=== PATIENT | female | born 1990 | race Caucasian/White ===

== ENCOUNTER 2021-03-02 05:22 | Inpatient (IN) | payer OTHER ==
[2021-03-02] MEDS ORDERED: Nalbuphine 10 MG/1 ML Vial IVPUSH PRN (06:47)
[2021-03-02] MEDS ORDERED: Acetaminophen/oxyCODONE 325-5 MG Tab PO PRN (06:47)
[2021-03-02] MEDS ORDERED: Naloxone 0.4 MG/ML Syringe IVPUSH PRN (06:47)
[2021-03-02] MEDS ORDERED: Ondansetron 4 MG/2 ML SDV IVPUSH PRN ×2 (06:47→09:06)
[2021-03-02] MEDS ORDERED: fentaNYL 100 MCG/2 ML SDV IVPUSH PRN (06:47)
[2021-03-02] MEDS ORDERED: diphenhydrAMINE 50 MG/ML SDV IVPUSH PRN ×2 (06:47→09:06)
--- NOTE | 2021-03-02 06:53 | PCM.PREANE ---
Preanesthetic Assessment - Anesthesia/Transfusion/Family Hx Anesthesia History: Prior Anesthesia Without Reaction Other Type of Anesthesia Reaction Comment: much trouble placing previous Epidural Family History of Anesthesia Reaction: No Transfusion History: No Prior Transfusion(s) - Physical Assessment NPO Status Date: 03/02/21 NPO Status Time: 00:00 Height: 5 ft 5 in Weight: 144 lb ASA Class: 2 Airway Class: Mallampati = 2 - Lab Values: Laboratory Last Values WBC 9.46 K/uL (4.0-11.0) 03/01/21 09:58 RBC 3.75 M/uL (4.30-5.90) L 03/01/21 09:58 Hgb 12.3 g/dL (12.0-16.0) 03/01/21 09:58 Hct 36.5 % (36.0-46.0) 03/01/21 09:58 MCV 97.3 fL (80.0-98.0) 03/01/21 09:58 MCH 32.8 pg (27.0-32.0) H 03/01/21 09:58 MCHC 33.7 g/dL (31.0-37.0) 03/01/21 09:58 RDW Std Deviation 51.7 fl (28.0-62.0) 03/01/21 09:58 RDW Coeff of Diana 15 % (11.0-15.0) 03/01/21 09:58 Plt Count 190 K/uL (150-400) 03/01/21 09:58 MPV 10.00 fL (7.40-12.00) 03/01/21 09:58 Nucleated RBC % 0.0 /100WBC 03/01/21 09:58 Nucleated RBCs # 0 K/uL 03/01/21 09:58 Blood Type O POSITIVE 03/01/21 09:58 Antibody Screen NEGATIVE 03/01/21 09:58 - Allergies Allergies/Adverse Reactions: Allergies Allergy/AdvReac Type Severity Reaction Status Date / Time No Known Allergies Allergy Verified 02/24/21 15:21 - Acknowledgements Anesthesia Type Planned: Spinal Pt an Appropriate Candidate for the Planned Anesthesia: Yes Alternatives and Risks of Anesthesia Discussed w Pt/Guardian: Yes Pt/Guardian Understands and Agrees with Anesthesia Plan: Yes PreAnesthesia Questionnaire HEENT History: Reports: None Cardiovascular History: Reports: None Respiratory History: Reports: None Gastrointestinal History: Reports: Other (See Below) Other Gastrointestinal History: heartburn during Genitourinary History: Reports: UTI, Recurrent [employer] History: Reports: Musculoskeletal History: Reports: Other (See Below) Other Musculoskeletal History: hx of Scoliosis Neurological History: Reports: Vertigo, Other (See Below) Other Neuro History: hx of motion sickness Psychiatric History: Reports: None Endocrine/Metabolic History: Reports: None Hematologic History: Reports: None Immunologic History: Reports: None Oncologic (Cancer) History: Reports: None Dermatologic History: Reports: None - Past Surgical History Head Surgeries/Procedures: Reports: None HEENT Surgical History: Reports: None Cardiovascular Surgical History: Reports: None Respiratory Surgical History: Reports: None GI Surgical History: Reports: None Female Surgical History: Reports: Section Endocrine Surgical History: Reports: None Oncologic Surgical History: Reports: None Dermatological Surgical History: Reports: None - SUBSTANCE USE Tobacco Use Status *Q: Never Tobacco User Recreational Drug Use History: No - HOME MEDS Home Medications: Home Meds Folic Acid 0.4 mg PO DAILY 02/24/21 [History] L.acidoph,Paracasei, B.lactis [Probiotic] 1 cap PO DAILY 02/24/21 [History] #103/Iron Fumarate/Fa [ ] 1 tab PO DAILY 02/24/21 [History] Vitamin B6-pyridOXINE 100 mg PO DAILY 02/24/21 [History] - CURRENT (IN HOUSE) MEDS Current Meds: Current Medications Diphenhydramine HCl (Diphenhydramine 50 Mg/Ml Sdv) 12.5 mg IVPUSH Q2H PRN PRN Reason: Itching Fentanyl (Fentanyl 100 Mcg/2 Ml Sdv) 50 mcg IVPUSH Q1H PRN PRN Reason: Pain (severe 7-10) Nalbuphine HCl (Nalbuphine 10 Mg/1 Ml Vial) 5 mg IVPUSH ASDIRECTED PRN PRN Reason: Itching Naloxone HCl (Naloxone 0.4 Mg/Ml Syringe) 0.1 mg IVPUSH ONETIME PRN PRN Reason: Respiratory Depression Stop: 03/03/21 06:48 Ondansetron HCl (Ondansetron 4 Mg/2 Ml Sdv) 4 mg IVPUSH Q6H PRN PRN Reason: Nausea Oxycodone/Acetaminophen (Acetaminophen/Oxycodone 325-5 Mg Tab) 2 tab PO Q6H PRN PRN Reason: Pain (moderate 4-6)
[2021-03-02] MEDS: Lactated Ringers 1,000 ML IV SCH ×2 (07:00→11:25)
[2021-03-02] MEDS ORDERED: fentaNYL 100 MCG/2 ML SDV ONE (07:17)
[2021-03-02] MEDS ORDERED: Morphine PF 10 MG/10 ML SDV ONE (07:18)
[2021-03-02] MEDS ORDERED: Oxytocin 10 Units/1 ML SDV ONE (07:18)
[2021-03-02] MEDS ORDERED: ceFAZolin 1 GM Vial ONE (08:05)
[2021-03-02] MEDS ORDERED: Ondansetron 4 MG/2 ML SDV ONE (08:31)
[2021-03-02] MEDS ORDERED: oxyCODONE 5 MG Tab PO PRN (09:06)
[2021-03-02] MEDS ORDERED: Acetaminophen 500 MG Tab PO PRN (09:06)
[2021-03-02] MEDS ORDERED: Tranexamic Acid 1,000 MG in Sodium Chloride 0.9% 100 ML IV PRN (09:06)
[2021-03-02] MEDS ORDERED: Misoprostol 200 MCG Tab RECTAL PRN (09:06)
[2021-03-02] MEDS ORDERED: Bisacodyl 10 MG Supp RECTAL PRN (09:06)
[2021-03-02] MEDS ORDERED: Oxytocin 10 Units/1 ML SDV IM PRN (09:06)
[2021-03-02] MEDS ORDERED: Lanolin 100% Cream 7 GM Tube TOP PRN (09:06)
[2021-03-02] MEDS ORDERED: Methylergonovine 0.2 MG/1 ML Amp IM PRN (09:06)
--- NOTE | 2021-03-02 09:11 | PCM.OPNOTE ---
- General Post-Op/Procedure Note Date of Surgery/Procedure: 03/02/21 Operative Procedure(s): Repeat Lower Transver Findings: Normal appearing male infant in cephalic presentation. Clear amniotic fluid. APGARs 8/9. Weight 10lbs 6oz. Normal appearing uterus, fallopian tubes and ovaries. Pre Op Diagnosis: 1. TIUP at 39w5d gestation. 2. Previous section x1. 3. Declines TOLAC Post-Op Diagnosis: 1. TIUP at 39w5d gestation. 2. Previous section x1. 3. Declines TOLAC Anesthesia Technique: Combo Spinal/Epidural Primary Surgeon: Radha Fernández Anesthesia Provider: Ananth Alvarenga Pathology: None Fluid Replacement, Intraop: 1,000 Output, Urine Amount: 200 EBL in mLs: 600 Complications: None known Condition: Good Free Text/Narrative:: Dictation #[id number]
[2021-03-02] MEDS ORDERED: Lactated Ringers 1,000 ML IV SCH (09:15)
[2021-03-02] MEDS ORDERED: Oxytocin/Lactated Ringers 30 UNIT/500 ML BAG IV SCH (09:15)
[2021-03-02] MEDS: Ketorolac 30 MG/ML SDV IVPUSH SCH ×3 (09:51→23:06)
--- NOTE | 2021-03-02 09:57 | PCM.POSTAN ---
POST ANESTHESIA ASSESSMENT - MENTAL STATUS Mental Status: Alert, Oriented - RESPIRATORY Respiratory Status: Respiratory Rate WNL, Airway Patent, O2 Saturation Stable - CARDIOVASCULAR CV Status: Pulse Rate WNL, Blood Pressure Stable - GASTROINTESTINAL GI Status: No Symptoms - POST OP HYDRATION Hydration Status: Adequate & Stable
--- NOTE | 2021-03-02 09:58 | PCM48HPAN ---
Post Anesthesia Note - EVALUATION WITHIN 48HRS OF ANESTHETIC Vital Signs in Normal Range: Yes Patient Participated in Evaluation: Yes Respiratory Function Stable: Yes Airway Patent: Yes Cardiovascular Function Stable: Yes Hydration Status Stable: Yes Pain Control Satisfactory: Yes Nausea and Vomiting Control Satisfactory: Yes Mental Status Recovered: Yes Vital Signs: Stable
--- NOTE | 2021-03-02 13:49 | OR ---
SURGEON: RADHA FERNÁNDEZ MD DATE OF PROCEDURE: 03/02/2021 PREOPERATIVE DIAGNOSES: 1. Term intrauterine at 39 weeks and 5 days gestation. 2. Previous section x1. 3. Declines vaginal after . POSTOPERATIVE DIAGNOSES: 1. Term intrauterine at 39 weeks and 5 days gestation. 2. Previous section x1. 3. Declines vaginal after . PROCEDURE: Repeat low transverse section. PRIMARY SURGEON: Radha Fernández MD ANESTHESIA: CSE. COMPLICATIONS: None known. ESTIMATED BLOOD LOSS: 600 mL. INTRAVENOUS FLUIDS: 1000 mL of crystalloid. URINE OUTPUT: 200 mL of clear urine at the end of the procedure. INDICATIONS: The patient is a 30-year-old 2, para 1 at 39 weeks and 5 days gestation with history of previous section x1 and declines trial of labor after section. FINDINGS: Normal-appearing male infant, cephalic presentation, clear amniotic fluid. scores 8 and 9. Weight 10 pounds 6 ounces. Normal-appearing uterus, tubes, and ovaries. PROCEDURE IN DETAIL: The patient was taken to the operating room where epidural anesthesia was found to be adequate. She was prepped and draped in the normal sterile fashion in a dorsal supine position with leftward tilt. Skin incision was made with scalpel and carried to the underlying layer of fascia, which was incised in the midline. Fascial incision was then extended laterally with Loredo scissors bilaterally. The superior aspect of the fascial incision was then grasped with Kit clamps, elevated, and dissected off the rectus muscles with Mayos. The inferior aspect of the fascial incision was then grasped with Kochers and in a likewise manner was elevated and dissected off with Mayos. The peritoneum was then entered digitally and extended with good visualization of the bladder. A large Ned O- Ring was then inserted into the abdominal cavity at this time to increase visualization. Vesicouterine peritoneum was then identified, grasped with pickups, and entered sharp with Metzenbaum scissors. The bladder flap was then created digitally. Uterine incision was then created in transverse fashion in the lower uterine segment with a scalpel and extended digitally. Amniotic sac was incidentally AROM'd at this time with clear fluid noted. 's head delivered atraumatically. Nose and mouth suctioned with bulb. Cord clamped and cut and handed off to awaiting nursing staff. Arterial, venous, and cord blood gases were then obtained from the umbilical cord. Placenta was then expressed, and the uterus was exteriorized from the abdomen and cleared of all clots and debris. The uterine incision was then repaired in a running locked fashion with 0 Monocryl. Excellent hemostasis was noted. The uterus was then returned to the abdomen. Gutters cleared of all clots and debris. The Ned O-Ring was then removed, and the peritoneum was then closed in a running fashion with 0 Vicryl, and the rectus muscles were next reapproximated with 0 Vicryl. The fascia was then closed with 0 Vicryl in a running fashion. Incision was irrigated. Hemostasis assured. Subcutaneous tissue was reapproximated with 0 Vicryl, and the skin was closed with 4-0 Vicryl on a Jamar needle with Steri- Strips applied along with dressing. Sponge, lap, and needle counts were correct x2. Prophylactic antibiotics were given prior to the procedure. The patient was taken to room for recovery in stable condition. GAIL DUBOIS /[id number]
[2021-03-02] MEDS: Vitamin B6-pyridOXINE 50 MG Tab PO SCH (16:26)
[2021-03-02] MEDS: Acidophilus with Citrus Pectin Tab PO SCH (16:26)
[2021-03-02] MEDS: Folic Acid 1 MG Tab PO SCH (16:26)
[2021-03-02] MEDS: Prenatal Multivitamin with Calcium/Folic Acid/Iron Tab PO SCH (16:26)
[2021-03-02] MEDS: Docusate Sodium 100 MG Cap PO SCH (21:15)
[2021-03-03] MEDS: Ketorolac 30 MG/ML SDV IVPUSH SCH ×2 (05:43→11:41)
--- NOTE | 2021-03-03 08:33 | PCM.PNPP ---
- General Info Date of Service: 03/03/21 Subjective Update: Resting comfortably in bed during rounds. Ludwig catheter removed this morning. Patient has ambulated, however, has not voided independently. Pain controlled with PO medication. Tolerating regular diet. Lochia decreasing. and supplementing . - General Info Date of Service: 03/03/21 - Patient Data Vital Signs - Most Recent: Last Vital Signs Temp 98.5 F 03/03/21 08:00 Pulse 92 03/03/21 08:00 Resp 18 03/03/21 08:00 BP 92/55 L 03/03/21 08:00 Pulse Ox 95 03/03/21 08:00 Weight - Most Recent: 144 lb I&O - Last 24 Hours: Intake & Output 03/02/21 03/03/21 03/03/21 22:59 06:59 14:59 Intake Total 2757 700 Output Total 1250 205 Balance 1507 -133$ Lab Results - Last 24 Hours: Laboratory Results - last 24 hr 03/02/21 03/03/21 Range/Units 08:15 05:26 Hgb 9.8 L (12.0-16.0) g/dL Hct 28.7 L (36.0-46.0) % Cord ABG pH 7.384 H (7.18-7.38) Cord ABG Base Excess -1.2 H (-10--2) Cord VBG pH 7.305 (7.25-7.45) Cord VBG Base Excess -0.7 H (-10--2) Med Orders - Current: Current Medications Acetaminophen (Acetaminophen 500 Mg Tab) 1,000 mg PO Q4H PRN PRN Reason: Pain (mild 1-3) Acidophilus/Pectin (Acidophilus With Stow Pectin Tab) 1 tab PO DAILY [facility] Last Admin: 03/02/21 16:26 Dose: Not Given Documented by: Bisacodyl (Bisacodyl 10 Mg Supp) 10 mg RECTAL ONETIME PRN PRN Reason: Constipation Diphenhydramine HCl (Diphenhydramine 50 Mg/Ml Sdv) 12.5 mg IVPUSH Q2H PRN PRN Reason: Itching Diphenhydramine HCl (Diphenhydramine 50 Mg/Ml Sdv) 25 mg IVPUSH Q6H PRN PRN Reason: Itching or Nausea Last Admin: 03/02/21 10:26 Dose: 25 mg Documented by: Docusate Sodium (Docusate Sodium 100 Mg Cap) 100 mg PO BID [facility] Last Admin: 03/02/21 21:15 Dose: 100 mg Documented by: Emollient Ointment (Lanolin 100% Cream 7 Gm Tube) 0 gm TOP ASDIRECTED PRN PRN Reason: Sore Nipples Fentanyl (Fentanyl 100 Mcg/2 Ml Sdv) 50 mcg IVPUSH Q1H PRN PRN Reason: Pain (severe 7-10) Folic Acid (Folic Acid 1 Mg Tab) 0.5 mg PO DAILY [facility] Last Admin: 03/02/21 16:26 Dose: Not Given Documented by: Lactated Ringer's (Ringers, Lactated) 1,000 mls @ 150 mls/hr IV ASDIRECTED [facility] Last Admin: 03/02/21 11:25 Dose: 150 mls/hr Documented by: Lactated Ringer's (Ringers, Lactated) 1,000 mls @ 125 mls/hr IV ASDIRECTED [facility] Oxytocin/Lactated Ringer's (Pitocin In Lr 30 Units/500 Ml) 30 unit in 500 mls @ 250 mls/hr IV TITRATE [facility]; Protocol Tranexamic Acid 1,000 mg/ (Sodium Chloride) 110 mls @ 660 mls/hr IV ONETIME PRN PRN Reason: Bleeding Ibuprofen (Ibuprofen 800 Mg Tab) 800 mg PO Q8H PRN PRN Reason: mild pain or fever Ketorolac Tromethamine (Ketorolac 30 Mg/Ml Sdv) 30 mg IVPUSH Q6H [facility] Stop: 03/03/21 09:16 Last Admin: 03/03/21 05:43 Dose: 30 mg Documented by: Methylergonovine Maleate (Methylergonovine 0.2 Mg/1 Ml Amp) 0.2 mg IM ONETIME PRN PRN Reason: Excessive Vaginal Bleeding Misoprostol (Misoprostol 200 Mcg Tab) 1,000 mcg RECTAL ONETIME PRN PRN Reason: excessive bleeding Nalbuphine HCl (Nalbuphine 10 Mg/1 Ml Vial) 5 mg IVPUSH ASDIRECTED PRN PRN Reason: Itching Ondansetron HCl (Ondansetron 4 Mg/2 Ml Sdv) 4 mg IVPUSH Q6H PRN PRN Reason: Nausea Ondansetron HCl (Ondansetron 4 Mg/2 Ml Sdv) 4 mg IVPUSH Q4H PRN PRN Reason: Nausea/Vomiting Last Admin: 03/02/21 17:31 Dose: 4 mg Documented by: Oxycodone HCl (Oxycodone 5 Mg Tab) 5 mg PO Q3H PRN PRN Reason: Pain (severe 7-10) Oxycodone/Acetaminophen (Acetaminophen/Oxycodone 325-5 Mg Tab) 2 tab PO Q6H PRN PRN Reason: Pain (moderate 4-6) Oxytocin (Oxytocin 10 Units/1 Ml Sdv) 10 unit IM ASDIRECTED PRN PRN Reason: Excessive Vaginal Bleeding Prenat Multivit/[place]/Iron/Folic Ac ( Multivitamin With Calcium/Folic Acid/Iron Tab) 1 each PO DAILY [facility] Last Admin: 03/02/21 16:26 Dose: Not Given Documented by: Pyridoxine HCl (Vitamin B6-Pyridoxine 50 Mg Tab) 100 mg PO DAILY [facility] Last Admin: 03/02/21 16:26 Dose: Not Given Documented by: Discontinued Medications Cefazolin Sodium (Cefazolin 1 Gm Vial) Confirm Administered Dose 2 gm .ROUTE .STK-MED ONE Stop: 03/02/21 08:06 Fentanyl (Fentanyl 100 Mcg/2 Ml Sdv) Confirm Administered Dose 100 mcg .ROUTE .STK-MED ONE Stop: 03/02/21 07:18 Morphine Sulfate (Morphine Pf 10 Mg/10 Ml Sdv) Confirm Administered Dose 10 mg .ROUTE .STK-MED ONE Stop: 03/02/21 07:19 Naloxone HCl (Naloxone 0.4 Mg/Ml Syringe) 0.1 mg IVPUSH ONETIME PRN PRN Reason: Respiratory Depression Stop: 03/03/21 06:48 Ondansetron HCl (Ondansetron 4 Mg/2 Ml Sdv) Confirm Administered Dose 4 mg .ROUTE .STK-MED ONE Stop: 03/02/21 08:32 Oxytocin (Oxytocin 10 Units/1 Ml Sdv) Confirm Administered Dose 30 unit .ROUTE .STK-MED ONE Stop: 03/02/21 07:19 - Interaction Infant Disposition, : [place] at Bedside Feeding: Attempted ; Nursed Fair/Poor Support Person: - Recovery Exam Fundal Tone: Firm Fundal Level: At Umbilicus Fundal Placement: Midline Lochia Amount: Small Lochia Color: Rubra/Red Urinary Elimination: Indwelling Catheter - Exam General: Alert Lungs: Normal Respiratory Effort Cardiovascular: Regular Rate GI/Abdominal Exam: Soft, No Distention Extremities: Normal Range of Motion, Non-Tender, No Pedal Edema Skin: Warm, Dry, Intact Wound/Incisions: Dressing Dry and Intact Neurological: No New Focal Deficit Psy/Mental Status: Normal Mood - Problem List Review Problem List Initiated/Reviewed/Updated: Yes - My Orders Last 24 Hours: My Active Orders 03/02/21 09:06 Patient Status [ADT] Routine Ambulate [RC] PER UNIT ROUTINE Antiembolic Devices [RC] PER UNIT ROUTINE Communication Order [RC] PER UNIT ROUTINE Communication Order [RC] PER UNIT ROUTINE Communication Order [RC] Per Unit Routine May Shower [RC] ASDIRECTED RT Incentive Spirometry [RC] Q2HWA Acetaminophen [Tylenol Extra Strength] 1,000 mg PO Q4H PRN Lanolin [Lansinoh HPA] See Dose Instructions TOP ASDIRECTED PRN Methylergonovine [Methergine] 0.2 mg IM ONETIME PRN Ondansetron [Zofran] 4 mg IVPUSH Q4H PRN Oxytocin [Pitocin] 10 unit IM ASDIRECTED PRN Tranexamic Acid [Cyklokapron] 1,000 mg Sodium Chloride 0.9% [Normal Saline] 100 ml IV ONETIME bisacodyL [Dulcolax] 10 mg RECTAL ONETIME PRN diphenhydrAMINE [Benadryl] 25 mg IVPUSH Q6H PRN miSOPROStoL [Cytotec] 1,000 mcg RECTAL ONETIME PRN oxyCODONE 5 mg PO Q3H PRN Assess Lochia [WOMSER] Per Unit Routine Assess Uterine Involution [WOMSER] Per Unit Routine Breast Pump [WOMSER] Per Unit Routine Peripheral IV Discontinue [OM.PC] Routine Sequential Compression Device [OM.PC] Per Unit Routine Resuscitation Status Routine 03/02/21 09:15 Ketorolac [Toradol] 30 mg IVPUSH Q6H Lactated Ringers [Ringers, Lactated] 1,000 ml IV ASDIRECTED Oxytocin/Lactated Ringers [Pitocin in LR 30 Units/500 ML] 30 unit in 500 ml IV TITRATE 03/02/21 09:30 Notify Provider Intake and Out [RC] ASDIRECTED Notify Provider Vital Signs [RC] ASDIRECTED 03/02/21 Lunch Regular Diet [DIET] 03/02/21 21:00 Docusate Sodium [Colace] 100 mg PO BID 03/03/21 15:15 Ibuprofen [Motrin] 800 mg PO Q8H PRN - Assessment Assessment:: 30 year old POD1 s/p repeat lower transverse section - Plan Plan:: Routine cares * Rh positive, rubella immune, GBS positive * PO pain medications ordered PRN * Encourage ambulation and fluid intake * Regular diet as tolerated * , nursing assistance PRN Dispo: stable. Anticipate discharge POD2-3 pending patient status, continue cares today
[2021-03-03] MEDS: Docusate Sodium 100 MG Cap PO SCH ×2 (09:16→21:02)
[2021-03-03] MEDS: Prenatal Multivitamin with Calcium/Folic Acid/Iron Tab PO SCH (09:16)
[2021-03-03] MEDS: Acidophilus with Citrus Pectin Tab PO SCH (09:17)
[2021-03-03] MEDS: Vitamin B6-pyridOXINE 50 MG Tab PO SCH (09:17)
[2021-03-03] MEDS: Folic Acid 1 MG Tab PO SCH (09:17)
[2021-03-03] MEDS ORDERED: Ketorolac 30 MG/ML SDV ONE (11:37)
[2021-03-03] MEDS: Acetaminophen 500 MG Tab PO PRN ×2 (16:00→23:05)
[2021-03-03] MEDS: Ibuprofen 800 MG Tab PO PRN (21:02)
[2021-03-04] MEDS: Ibuprofen 800 MG Tab PO PRN ×2 (05:05→13:14)
--- NOTE | 2021-03-04 08:19 | PCM.PNPP ---
- General Info Date of Service: 03/04/21 Subjective Update: Resting comfortably in bed during rounds. Pain controlled with PO medication. Ambulating and voiding without difficutly. Tolerating regular diet. Lochia decreasing. and supplementing infant. - General Info Date of Service: 03/04/21 - Patient Data Vital Signs - Most Recent: Last Vital Signs Temp 96.5 F L 03/04/21 01:00 Pulse 97 03/04/21 01:00 Resp 18 03/04/21 01:00 BP 98/55 L 03/04/21 01:00 Pulse Ox 98 03/04/21 01:00 Weight - Most Recent: 144 lb Lab Results - Last 24 Hours: Laboratory Results - last 24 hr 03/01/21 Range/Units 09:58 RPR Non-Reac (Non-Reac) Med Orders - Current: Current Medications Acetaminophen (Acetaminophen 500 Mg Tab) 1,000 mg PO Q6H PRN PRN Reason: Pain (mild 1-3) Last Admin: 03/03/21 23:05 Dose: 1,000 mg Documented by: Acidophilus/Pectin (Acidophilus With [place] Pectin Tab) 1 tab PO DAILY [facility] Last Admin: 03/03/21 09:17 Dose: Not Given Documented by: Bisacodyl (Bisacodyl 10 Mg Supp) 10 mg RECTAL ONETIME PRN PRN Reason: Constipation Diphenhydramine HCl (Diphenhydramine 50 Mg/Ml Sdv) 12.5 mg IVPUSH Q2H PRN PRN Reason: Itching Diphenhydramine HCl (Diphenhydramine 50 Mg/Ml Sdv) 25 mg IVPUSH Q6H PRN PRN Reason: Itching or Nausea Last Admin: 03/02/21 10:26 Dose: 25 mg Documented by: Docusate Sodium (Docusate Sodium 100 Mg Cap) 100 mg PO BID [facility] Last Admin: 03/03/21 21:02 Dose: 100 mg Documented by: Emollient Ointment (Lanolin 100% Cream 7 Gm Tube) 0 gm TOP ASDIRECTED PRN PRN Reason: Sore Nipples Fentanyl (Fentanyl 100 Mcg/2 Ml Sdv) 50 mcg IVPUSH Q1H PRN PRN Reason: Pain (severe 7-10) Folic Acid (Folic Acid 1 Mg Tab) 0.5 mg PO DAILY [facility] Last Admin: 03/03/21 09:17 Dose: Not Given Documented by: Lactated Ringer's (Ringers, Lactated) 1,000 mls @ 150 mls/hr IV ASDIRECTED [facility] Last Admin: 03/02/21 11:25 Dose: 150 mls/hr Documented by: Lactated Ringer's (Ringers, Lactated) 1,000 mls @ 125 mls/hr IV ASDIRECTED [facility] Oxytocin/Lactated Ringer's (Pitocin In Lr 30 Units/500 Ml) 30 unit in 500 mls @ 250 mls/hr IV TITRATE [facility]; Protocol Tranexamic Acid 1,000 mg/ (Sodium Chloride) 110 mls @ 660 mls/hr IV ONETIME PRN PRN Reason: Bleeding Ibuprofen (Ibuprofen 800 Mg Tab) 800 mg PO Q8H PRN PRN Reason: mild pain or fever Last Admin: 03/04/21 05:05 Dose: 800 mg Documented by: Methylergonovine Maleate (Methylergonovine 0.2 Mg/1 Ml Amp) 0.2 mg IM ONETIME PRN PRN Reason: Excessive Vaginal Bleeding Misoprostol (Misoprostol 200 Mcg Tab) 1,000 mcg RECTAL ONETIME PRN PRN Reason: excessive bleeding Nalbuphine HCl (Nalbuphine 10 Mg/1 Ml Vial) 5 mg IVPUSH ASDIRECTED PRN PRN Reason: Itching Ondansetron HCl (Ondansetron 4 Mg/2 Ml Sdv) 4 mg IVPUSH Q6H PRN PRN Reason: Nausea Ondansetron HCl (Ondansetron 4 Mg/2 Ml Sdv) 4 mg IVPUSH Q4H PRN PRN Reason: Nausea/Vomiting Last Admin: 03/02/21 17:31 Dose: 4 mg Documented by: Oxycodone HCl (Oxycodone 5 Mg Tab) 5 mg PO Q3H PRN PRN Reason: Pain (severe 7-10) Oxycodone/Acetaminophen (Acetaminophen/Oxycodone 325-5 Mg Tab) 2 tab PO Q6H PRN PRN Reason: Pain (moderate 4-6) Oxytocin (Oxytocin 10 Units/1 Ml Sdv) 10 unit IM ASDIRECTED PRN PRN Reason: Excessive Vaginal Bleeding Prenat Multivit/Dormitory Keeper/Iron/Folic Ac ( Multivitamin With Calcium/Folic Acid/Iron Tab) 1 each PO DAILY [facility] Last Admin: 03/03/21 09:16 Dose: 1 each Documented by: Pyridoxine HCl (Vitamin B6-Pyridoxine 50 Mg Tab) 100 mg PO DAILY [facility] Last Admin: 03/03/21 09:17 Dose: Not Given Documented by: Discontinued Medications Acetaminophen (Acetaminophen 500 Mg Tab) 1,000 mg PO Q4H PRN PRN Reason: Pain (mild 1-3) Cefazolin Sodium (Cefazolin 1 Gm Vial) Confirm Administered Dose 2 gm .ROUTE .STK-MED ONE Stop: 03/02/21 08:06 Fentanyl (Fentanyl 100 Mcg/2 Ml Sdv) Confirm Administered Dose 100 mcg .ROUTE .STK-MED ONE Stop: 03/02/21 07:18 Ketorolac Tromethamine (Ketorolac 30 Mg/Ml Sdv) 30 mg IVPUSH Q6H [facility] Stop: 03/03/21 09:16 Last Admin: 03/03/21 11:41 Dose: 30 mg Documented by: Ketorolac Tromethamine (Ketorolac 30 Mg/Ml Sdv) Confirm Administered Dose 30 mg .ROUTE .STK-MED ONE Stop: 03/03/21 11:38 Last Admin: 03/03/21 11:47 Dose: Not Given Documented by: Morphine Sulfate (Morphine Pf 10 Mg/10 Ml Sdv) Confirm Administered Dose 10 mg .ROUTE .STK-MED ONE Stop: 03/02/21 07:19 Naloxone HCl (Naloxone 0.4 Mg/Ml Syringe) 0.1 mg IVPUSH ONETIME PRN PRN Reason: Respiratory Depression Stop: 03/03/21 06:48 Ondansetron HCl (Ondansetron 4 Mg/2 Ml Sdv) Confirm Administered Dose 4 mg .ROUTE .STK-MED ONE Stop: 03/02/21 08:32 Oxytocin (Oxytocin 10 Units/1 Ml Sdv) Confirm Administered Dose 30 unit .ROUTE .STK-MED ONE Stop: 03/02/21 07:19 - Infant Interaction Disposition, : at Bedside Infant Interaction: Holding Feeding: Breastfed Infant; Nursed Well Support Person: - Recovery Exam Fundal Tone: Firm Fundal Level: 1 Fingerbreadths Below Umbilicus Fundal Placement: Midline Lochia Amount: Scant Lochia Color: Rubra/Red Perineum Description: Intact, Minimal Bruising/Swelling Episiotomy/Laceration: None Bladder Status: Voiding Urinary Elimination: Voided Other Urinary Elimination, : Waiting for post catheter removal void. - Exam General: Alert Lungs: Normal Respiratory Effort Cardiovascular: Regular Rate GI/Abdominal Exam: Soft, Non-Tender Extremities: Normal Range of Motion, Non-Tender, No Pedal Edema Skin: Warm, Dry, Intact Wound/Incisions: Dressing Dry and Intact Neurological: No New Focal Deficit Psy/Mental Status: Normal Mood - Problem List Review Problem List Initiated/Reviewed/Updated: Yes - My Orders Last 24 Hours: My Active Orders 03/03/21 15:15 Ibuprofen [Motrin] 800 mg PO Q8H PRN - Assessment Assessment:: 30 year old POD2 s/p repeat lower transverse section - Plan Plan:: Routine cares * Rh positive, rubella immune, GBS positive * PO pain medications ordered PRN * Encourage ambulation and fluid intake * Regular diet as tolerated * , nursing assistance PRN Possible vancomycin resistant enterococcal UTI from previous date * I was notified that patient had a urine culture obtained on 01/14/2021 with was positive for enterococcus and vancomycin-indeterminate. Patient was treated at that time by appropriate antibiotics and has not had UTI symptoms since that time, including during this admission. Repeat UC sent last evening for further evaluation. Dispo: stable. Anticipate discharge tomorrow pending patient status, continue cares today
[2021-03-04] MEDS: Docusate Sodium 100 MG Cap PO SCH (08:45)
[2021-03-04] MEDS: Prenatal Multivitamin with Calcium/Folic Acid/Iron Tab PO SCH (08:45)
[2021-03-04] MEDS: Acetaminophen 500 MG Tab PO PRN (08:50)
[2021-03-04] MEDS: Acidophilus with Citrus Pectin Tab PO SCH (09:12)
[2021-03-04] MEDS: Folic Acid 1 MG Tab PO SCH (09:12)
[2021-03-04] MEDS: Vitamin B6-pyridOXINE 50 MG Tab PO SCH (09:12)
== END 2021-03-04 17:50 | disposition home or self-care (01) | DRG 788 ==
LOC: MW.OB 05:22
PROVIDERS: ADMIT Obstetrics & Gynecology; ATTEND Obstetrics & Gynecology
PROC: 10D00Z1 Extraction of Products of Conception, Low, Open Approach (ICD-10-PCS; principal; 2021-03-02)
PROC: 10907ZC Drainage of Amniotic Fluid, Therapeutic from Products of Conception, Via Natural or Artificial Opening (ICD-10-PCS; 2021-03-02)
DX: O34.211 Maternal care for low transverse scar from previous cesarean delivery (principal); Z37.0 Single live birth; Z3A.39 39 weeks gestation of pregnancy
CPT/HCPCS: 36415; 59025; 82803; 85014; 85018; 85027; 86592; 86850; 86900; 86901; 87086; A9270-GY; C1765; J0690; J1200; J1885; J2270; J2405; J2590; J3010; J7120